=== PATIENT | male | born 1995 | race Caucasian/White ===

== ENCOUNTER 2021-05-15 14:37 | Inpatient (IN) | payer OTHER ==
[2021-05-15] MEDS ORDERED: HALOPERIDOL LACTATE 5 MG/ML IM ONE (14:47)
[2021-05-15] MEDS ORDERED: LORazepam 2 MG/ML SDV VIAL IM STA (14:47)
[2021-05-15] MEDS ORDERED: HALOPERIDOL LACTATE 5 MG/ML ONE (14:49)
[2021-05-15] MEDS ORDERED: LORazepam 2 MG/ML SDV VIAL ONE (14:50)
[2021-05-15 15:09] VITALS: BMI 26.4
[2021-05-15 15:33] LABS: BASO % 0.3 % (0-2.0); EOS % 0.2 % (0-4.5); HEMATOCRIT 40.9 % (35.4-49); HEMOGLOBIN 14.4 GM/dL (11.7-16.9); LYMPH % 16.1 % (8-40); MCH 30.6 pg (25.7-33.7); MCHC 35.2 g/dl (32.0-35.9); MEAN CELL VOLUME 87.1 fl (80-96); MEAN PLT VOLUME 7.2 fl (7.5-11.1); MONO % 5.4 % (3.8-10.2); PLATELET COUNT 229 10^3/uL (134-434); RDW 12.8 % (11.9-15.9); WHITE BLOOD COUNT 11.7 K/mm3 (4.0-10.0)
[2021-05-15 15:39] LABS: INR 1.01 (0.83-1.09); PROTHROMBIN TIME (PATIENT) 12.4 SEC (9.7-13.0)
[2021-05-15 15:42] LABS: ACTIVATED PTT 28.8 SECONDS (25.2-36.5)
[2021-05-15 15:54] LABS: CHLORIDE 99 mmol/L (98-107); SODIUM 134 mmol/L (136-145)
[2021-05-15 15:57] LABS: ALBUMIN 4.3 g/dl (3.4-5.0); ANION GAP 9 MMOL/L (8-16); CALCIUM 8.5 mg/dL (8.5-10.1); CO2 26 mmol/L (21-32); GLUCOSE,RANDOM 107 mg/dL (74-106)
[2021-05-15 15:58] LABS: BLOOD UREA NITROGEN 12.4 mg/dL (7-18)
[2021-05-15 16:00] LABS: CREATININE 0.6 mg/dL (0.55-1.3); SGOT/AST 22 U/L (15-37); SGPT/ALT 36 U/L (13-61)
[2021-05-15 16:02] LABS: BILIRUBIN,TOTAL 1.7 mg/dL (0.2-1); TOT PROT 7.4 g/dl (6.4-8.2)
[2021-05-15 16:03] LABS: ALK PHOS 87 U/L (45-117)
[2021-05-15] MEDS ORDERED: KCL 10 MEQ IVPB 10 MEQ/100 ML INFUS.BAG IVPB SCH (20:30)
[2021-05-15] MEDS ORDERED: POTASSIUM CHLORIDE TABS 20 MEQ TABLET.ER (FP) PO ONE ×2 (21:19→21:24)
[2021-05-15 21:27] LABS: PH,URINE 6.5 (5.0-8.0); URINE APPEARANCE Slightly Cloudy; URINE BILIRUBIN Negative (NEGATIVE); URINE COLOR Yellow; URINE GLUCOSE (UA) Negative (NEGATIVE); URINE KETONE Negative (NEGATIVE); URINE LEUK ESTERASE Negative (NEGATIVE); URINE NITRITE Negative (NEGATIVE); URINE PROTEIN Negative (NEGATIVE); URINE UROBILINOGEN 0.2 mg/dL (0.2-1.0)
[2021-05-15 21:32] LABS: EPI CELLS 10.5 /uL (0-25.1); HYALINE CASTS 0.12 /uL (0-3.1); URINE BACTERIA 3.7 /uL (0-1359); URINE RBC 2.6 /uL (0-23.9); URINE WBC 5.3 /uL (0-25.8)
[2021-05-15 21:38] LABS: URINE BARBITURATES NEGATIVE (NEGATIVE)
[2021-05-15 21:39] LABS: COCAINE, UR NEGATIVE (NEGATIVE); METHADONE, UR NEGATIVE (NEGATIVE); OPIATES, URI NEGATIVE (NEGATIVE); PHENCYCLIDINE,URINE NEGATIVE (NEGATIVE); URINE BENZODIAZEPINES NEGATIVE (NEGATIVE)
[2021-05-15 21:45] LABS: URINE AMPHETAMINES NEGATIVE (NEGATIVE)
[2021-05-16 01:52] LABS: MAGNESIUM 2.3 mg/dL (1.8-2.4)
[2021-05-16 01:56] LABS: PHOSPHOROUS 4.2 mg/dL (2.5-4.9)
[2021-05-16 05:57] LABS: BASO % 0.5 % (0-2.0); EOS % 0.7 % (0-4.5); HEMATOCRIT 42.2 % (35.4-49); HEMOGLOBIN 14.4 GM/dL (11.7-16.9); LYMPH % 28.4 % (8-40); MCH 30.4 pg (25.7-33.7); MCHC 34.2 g/dl (32.0-35.9); MEAN PLT VOLUME 7.3 fl (7.5-11.1); MONO % 7.4 % (3.8-10.2); PLATELET COUNT 202 10^3/uL (134-434); RBC 4.74 M/mm3 (4.00-5.60); RDW 13.1 % (11.9-15.9); WHITE BLOOD COUNT 6.9 K/mm3 (4.0-10.0)
[2021-05-16 06:13] LABS: CALCIUM 8.9 mg/dL (8.5-10.1)
[2021-05-16 06:14] LABS: BLOOD UREA NITROGEN 11.6 mg/dL (7-18)
[2021-05-16 06:28] LABS: CREATININE 0.7 mg/dL (0.55-1.3)
[2021-05-16] MEDS ORDERED: ENOXAPARIN NA (PORCINE) 40 MG/0.4 ML DISP.SYRIN SQ SCH (10:00)
[2021-05-16 15:28] VITALS: BP 114/64; PULSE 99; TEMP 98
== END 2021-05-16 16:01 | disposition home or self-care (01) | DRG 776 ==
LOC: JER 14:37 → JERBED 19:03
PROVIDERS: ATTEND Internal Medicine
DX: F12.188 Cannabis abuse with other cannabis-induced disorder (principal); E87.6 Hypokalemia; F32.9 Major depressive disorder, single episode, unspecified; R41.82 Altered mental status, unspecified
CPT/HCPCS: 36415; 70450-TC; 71045-TC-FY; 73110-TC-LT-FY; 73130-TC-LT-FY; 80048; 80053; 80307; 81003; 82140; 82550; 82553; 83735; 84100; 84436; 84439; 84443; 84484; 85025; 85610; 85730; 87086; 93005; 93010; 99285-25; C9803; U0003; U0005

== ENCOUNTER 2021-07-08 23:46 | Emergency (ER) | payer OTHER ==
[2021-07-08] MEDS ORDERED: SODIUM CHLORIDE 0.9% 500 ML INFUS.BAG IV ONE (23:53)
[2021-07-09] MEDS ORDERED: HALOPERIDOL LACTATE 5 MG/ML ONE (00:06)
[2021-07-09 00:16] VITALS: TEMP 98; BMI 25.1
[2021-07-09 01:30] LABS: BASO % 0.5 % (0-2.0); EOS % 0.5 % (0-4.5); HEMATOCRIT 40.7 % (35.4-49); HEMOGLOBIN 14.7 GM/dL (11.7-16.9); LYMPH % 21.8 % (8-40); MCH 31.5 pg (25.7-33.7); MCHC 36.1 g/dl (32.0-35.9); MEAN CELL VOLUME 87.2 fl (80-96); MEAN PLT VOLUME 7.2 fl (7.5-11.1); MONO % 7.9 % (3.8-10.2); NEUT % 69.3 % (42.8-82.8); PLATELET COUNT 223 10^3/uL (134-434); RBC 4.67 M/mm3 (4.00-5.60); RDW 13.4 % (11.9-15.9); WHITE BLOOD COUNT 10.2 K/mm3 (4.0-10.0)
[2021-07-09 01:44] LABS: INR 0.97 (0.83-1.09); PROTHROMBIN TIME (PATIENT) 11.7 SEC (9.7-13.0)
[2021-07-09 01:47] LABS: ACTIVATED PTT 30.1 SECONDS (25.2-36.5)
[2021-07-09 01:48] LABS: CHLORIDE 108 mmol/L (98-107); SODIUM 142 mmol/L (136-145)
[2021-07-09 01:51] LABS: ALBUMIN 4.1 g/dl (3.4-5.0); ANION GAP 8 MMOL/L (8-16); CALCIUM 8.9 mg/dL (8.5-10.1); CO2 26 mmol/L (21-32); GLUCOSE,RANDOM 103 mg/dL (74-106); MAGNESIUM 1.9 mg/dL (1.8-2.4)
[2021-07-09 01:53] LABS: BLOOD UREA NITROGEN 14.5 mg/dL (7-18)
[2021-07-09 01:54] LABS: CREATININE 1.1 mg/dL (0.55-1.3); PHOSPHOROUS 2.1 mg/dL (2.5-4.9); SGOT/AST 21 U/L (15-37); SGPT/ALT 36 U/L (13-61)
[2021-07-09 01:55] LABS: BILIRUBIN,TOTAL 1.1 mg/dL (0.2-1); TOT PROT 7.3 g/dl (6.4-8.2)
[2021-07-09 01:59] LABS: ALK PHOS 111 U/L (45-117)
[2021-07-09 03:38] VITALS: BP 113/66; PULSE 97
== END 2021-07-09 04:53 | disposition home or self-care (01) ==
LOC: JER 23:46
DX: F19.920 Other psychoactive substance use, unspecified with intoxication, uncomplicated (principal)
CPT/HCPCS: 36415; 71045-TC-FY; 80053; 80307; 82550; 82553; 83735; 84100; 84484; 85025; 85610; 85730; 93005; 93010; 99285-25